=== PATIENT | male | born 1945 | race Caucasian/White ===

== ENCOUNTER 2017-12-11 05:51 | Day surgery (SDC) | payer MEDICARE ==
[2017-12-11] MEDS ORDERED: ACETAMINOPHEN 325 MG TAB PO (06:00)
[2017-12-11] MEDS: OFLOXACIN 0.3 % (OCUFLOX) OPTH SOL 5ML OD (06:41)
[2017-12-11] MEDS: LIDOCAINE 3.5 % 1ML OPHTH TOPICAL GEL OU (06:41)
[2017-12-11] MEDS: TROPICAMIDE 1% OPHTH SOLN 2ML OD (06:41)
[2017-12-11] MEDS: CYCLOPENTOLATE 2% OPHTH SOLN 2ML BTL OD (06:42)
[2017-12-11] MEDS: PHENYLEPHRINE 2.5% OPHTH SOL 2ML OD (06:42)
[2017-12-11 06:51] LABS: BEDSIDE GLUCOSE 109 MG/DL (83-110)
[2017-12-11] MEDS: MOXIFLOXACIN IN BSS 0.25MG/0.25ML INTRACAMERAL INJ (OR EYE ONLY)(J2280) As Ordered (07:50)
[2017-12-11] MEDS: LIDOCAINE 1% SDV 5 ML VIAL As Ordered (07:50)
[2017-12-11] MEDS: PHENYLEPHRINE HCL 10 % OPHTH. SOL 5ML OD (07:50)
[2017-12-11] MEDS: HEALON DUET (HEALON 10MG/ML 0.55ML & HEALON ENDOCOAT 30MG/ML 0.85ML) As Ordered (07:50)
[2017-12-11] MEDS: BSS with VANC/TOB/EPI for EYE CASES IR (07:50)
[2017-12-11] MEDS: POVIDONE-IODINE 5% OPHTH PREP SOL 30ML As Ordered (07:50)
[2017-12-11] MEDS: TRIAMCINOLONE PRES FR 40 MG/ML 1ML(TRIESENCE)(OR EYE ONLY)(J3300 PER 1MG) As Ordered (07:50)
[2017-12-11] MEDS ORDERED: MIDAZOLAM INJ 2 MG/2 ML VIAL (J2250) As Ordered (07:54)
[2017-12-11] MEDS ORDERED: fentaNYL 100 MCG/2 ML INJECTION (J3010) As Ordered (07:54)
[2017-12-11] MEDS ORDERED: TRIMETHOBENZAMIDE 300 MG CAP PO (08:30)
[2017-12-11] MEDS: AcetaZOLAMIDE 500 MG ER CAP PO (08:30)
== END 2017-12-11 08:45 | disposition home or self-care (01) ==
LOC: M SDC 05:51
DX: H25.9 Unspecified age-related cataract (principal); H21.81 Floppy iris syndrome; I10 Essential (primary) hypertension; E78.5 Hyperlipidemia, unspecified; E11.9 Type 2 diabetes mellitus without complications; Z79.899 Other long term (current) drug therapy
CPT/HCPCS: 66982

== ENCOUNTER → 2021-01-14 | Outpatient (CLI) | payer MEDICARE ==
[~2021-01-14] MED LIST: AMLO1TAB24 PO; ATOR40TA75 PO; CHLO125TA PO; FLOM0.4C39 PO; IRBE300T7 PO; LOSA100T50; METO1TAB7 PO; SPIR-10
== END ==
LOC: M LABSMTC 09:12
PROVIDERS: ATTEND Anesthesiology
DX: Z01.818 Encounter for other preprocedural examination (principal); Z11.52 Encounter for screening for COVID-19

== ENCOUNTER 2021-01-19 11:14 | Day surgery (SDC) | payer MEDICARE ==
[~2021-01-19] VITALS: Ht 165.1 cm; Wt 93.8 kg
[~2021-01-19 11:14] MED LIST changes: +NS 1,000 ML IV ONE
[2021-01-19] MEDS ORDERED: propofoL 200 MG/20 ML VIAL As Ordered ONE (12:17)
[2021-01-19] MEDS ORDERED: LIDOCAINE 2% 100MG/5ML SDV (FOR ANES.) As Ordered ONE (12:17)
--- NOTE | 2021-01-19 12:42 | ROOR ---
Patient Name: Michael Cedeno Procedure Date: 01/19/2021 12:17 PM Date of : 1945 Age: 75 Room: [facility] Gender: Male Note Status: Finalized Procedure: Colonoscopy Indications: High risk colon cancer surveillance: Personal history of colonic polyps Providers: Hector Rodriguez Jr, MD Referring MD: SEN IBARRA JR, MD Requesting Provider: Medicines: Propofol per Anesthesia Complications: No immediate complications. Procedure: Pre-Anesthesia Assessment: - Prior to the procedure, a History and Physical was performed, and patient medications and allergies were reviewed. The patient is competent. The risks and benefits of the procedure and the sedation options and risks were discussed with the patient. All questions were answered and informed consent was obtained. Patient identification and proposed procedure were verified by the physician and the nurse in the pre-procedure area and in the procedure room. Mental Status Examination: alert and oriented. Airway Examination: normal oropharyngeal airway and neck mobility. Respiratory Examination: clear to auscultation. CV Examination: normal. ASA Grade Assessment: II - A patient with mild systemic disease. After reviewing the risks and benefits, the patient was deemed in satisfactory condition to undergo the procedure. The anesthesia plan was to use moderate sedation / analgesia (conscious sedation). Immediately prior to administration of medications, the patient was re-assessed for adequacy to receive sedatives. The heart rate, respiratory rate, oxygen saturations, blood pressure, adequacy of pulmonary ventilation, and response to care were monitored throughout the procedure. The physical status of the patient was re-assessed after the procedure. The Colonoscope was introduced through the anus and advanced to the cecum, identified by appendiceal orifice and ileocecal valve. The colonoscopy was performed without difficulty. The patient tolerated the procedure well. The quality of the bowel preparation was adequate. Findings: The recto-sigmoid colon, sigmoid colon, transverse colon, cecum, appendiceal orifice and ileocecal valve appeared normal. Three polyps were found in the rectum, descending colon and ascending colon. The polyps were small in size. These polyps were removed with a cold snare. Resection was complete, but the polyp tissue was only partially retrieved. Many small and large-mouthed diverticula were found in the sigmoid colon. Non-bleeding hemorrhoids were found during endoscopy. The hemorrhoids were Grade II (internal hemorrhoids that prolapse but reduce spontaneously) and Grade III (internal hemorrhoids that prolapse but require manual reduction). Impression: - The recto-sigmoid colon, sigmoid colon, transverse colon, cecum, appendiceal orifice and ileocecal valve are normal. - Three small polyps in the rectum, in the descending colon and in the ascending colon, removed with a cold snare. Complete resection. Partial retrieval. - Diverticulosis in the sigmoid colon. - Non-bleeding hemorrhoids. Recommendation: - Repeat colonoscopy in 5 years for surveillance. Procedure Code(s): --- Professional --- 00264, Colonoscopy, flexible; with removal of tumor(s), polyp(s), or other lesion(s) by snare technique Diagnosis Code(s): --- Professional --- Z86.010, Personal history of colonic polyps K64.2, Third degree hemorrhoids K62.1, Rectal polyp K63.5, Polyp of colon K57.30, Diverticulosis of large intestine without perforation or abscess without bleeding CPT copyright 2019 [employer]. All rights reserved. The codes documented in this report are preliminary and upon training and quality manager review may be revised to meet current compliance requirements. Hector Rodriguez MD Hector Rodriguez Jr, MD 01/19/2021 12:41:44 PM Electronically signed by Hector Rodriguez Jr, MD Number of Addenda: 0 Note Initiated On: 01/19/2021 12:17 PM Estimated Blood Loss: Estimated blood loss: none.
[2021-01-19 13:00] VITALS: BP 176/87
== END 2021-01-19 13:07 | disposition home or self-care (01) ==
LOC: M OPP 11:14
PROVIDERS: ATTEND Surgery
DX: Z12.11 Encounter for screening for malignant neoplasm of colon (principal); Z86.010 Personal history of colon polyps; K63.5 Polyp of colon; K62.1 Rectal polyp; K57.30 Diverticulosis of large intestine without perforation or abscess without bleeding; K64.2 Third degree hemorrhoids; Z87.891 Personal history of nicotine dependence